=== PATIENT | male | born 1985 | race African-American/Black ===

== ENCOUNTER → 2016-10-28 | Outpatient (CLI) | payer OTHER ==
[~2016-10-28] MED LIST: ADDERALL 10 MG10 MG PO; ADDERALL XR 1010 MG PO; AUGMENTIN 875-1 EACH PO; CELEXA40 MG PO; LEXAPRO20 MG PO; NORCO 5-325 TA1 EACH PO; WELLBUTRIN SR150 MG PO; WELLBUTRIN XL150 M1
== END ==
LOC: CV 11:39
DX: R00.0 Tachycardia, unspecified (principal)